=== PATIENT | male | born 1950 | race Caucasian/White ===

== ENCOUNTER → 2023-06-16 13:09 | Outpatient (REF) | payer MEDICARE, SELFPAY | LOC: HWRAD 13:09 | PROVIDERS: ATTENDING PHYSICIAN Physician Assistant | DX: R10.10 Upper abdominal pain, unspecified (principal); Z87.19 Personal history of other diseases of the digestive system | CPT/HCPCS: 76700 ==

== ENCOUNTER → 2023-09-15 06:37 | Day surgery (SDC) | payer MEDICARE, SELFPAY | LOC: GI 06:37 | PROVIDERS: ATTENDING PHYSICIAN Internal Medicine Gastroenterology | DX: Z12.11 Encounter for screening for malignant neoplasm of colon (principal); K64.8 Other hemorrhoids; D12.2 Benign neoplasm of ascending colon; D12.3 Benign neoplasm of transverse colon; D12.4 Benign neoplasm of descending colon; D12.0 Benign neoplasm of cecum; K62.1 Rectal polyp; K63.5 Polyp of colon; K31.7 Polyp of stomach and duodenum; K44.9 Diaphragmatic hernia without obstruction or gangrene; K22.70 Barrett's esophagus without dysplasia; K29.70 Gastritis, unspecified, without bleeding; Z86.010 Personal history of colon polyps | CPT/HCPCS: 45385; 45380; 43239; 88305; 88342 ==

== ENCOUNTER → 2023-12-05 13:25 | Outpatient (REF) | payer MEDICARE, SELFPAY | LOC: MRI 13:25 | PROVIDERS: ATTENDING PHYSICIAN Physician Assistant Surgical; FAMILY PHYSICIAN Physician Assistant | DX: M25.552 Pain in left hip (principal) | CPT/HCPCS: 73721 ==

== ENCOUNTER → 2024-02-17 09:29 | Outpatient (REF) | payer MEDICARE, SELFPAY ==
--- NOTE | 2024-01-26 13:33 | WATCHMAN ---
Watchman
Wathcman Procedure
Referred by:: Marcy Everett
Date of Referral:: 01/22/24
[id number] Score
Age in Years (65=0, 65-74=1, >/=75=2): 65-74
Sex (Female=+1): Male
Congestive Heart Failure History (Yes=+1): Yes
Hypertension History (Yes=+1): Yes
Stroke/TIA/Thromboembolism History (Yes=+2): No
Vascular Disease History (Yes=+1): No
Diabetes Mellitus (Yes=+1): No
Score: 3
Anticoagulation Recommendations: Recommend anticoagulation (as validated in nonvalvular fib)
HASBLED Score
Hypertenstion (uncontrolled >160mmHG systolic): No
Renal disease (dialysis, transplant, Cr >2.26mg/dL or >200umol/L): No
Liver disease (cirrhosis or bilirubin >2x normal w/ AST/ALT/AP >3x normal: No
Stroke history: No
Prior major bleeding or predisposition to bleeding: Yes
Labile INR(unsable/high INRs,time in therapeutic range <60%): No
Age >65: Yes
Medication usage predisposing to bleeding(ASA, NSAIDS): No
Alcohol use (>/= 8 drinks/week): No
Score: 2
Risk: Anticoagulation can be considered, however patient does have moderate risk for major bleeding (2/100 patient-years)
Electrocardiogram
Interpretation: abnormal
Heart Rate: 73
Rhythm: a-fib
QRS Pattern: left bundle branch block
Physician Visits
Dock Manager:: Marguerite
Date of Visit:: 01/22/24
Primary [employer]ilingual [employer] Psychologist:: Dr. Librado Everett
PCP:: Ana Yoon
Oral Anticoagulation
Post procedure anticoagulation plan:: Maintain Eliquis 5 mg twice daily for 3 months after watchman implantation until we can further assess adequacy of device implantation at the 3-month transesophageal echocardiogram.
Plan
Plan:: 01/22/2024: Consult for watchman received from Dr. Everett.
01/26/2024: Called and spoke to patient. Verified he will have BMP tomorrow at [facility] and he understands instructions for prednisone/benadryl prior to CT scan for his contrast allergy. Assisted in scheduling CT scan for 02/17/2024 at 0945. Provided
with instructions to not eat or drink 3 hours prior. Allowed for and answered questions. Confirmed he has my contact information.
== END ==
LOC: RAD 09:29
PROVIDERS: ATTENDING PHYSICIAN Internal Medicine Cardiovascular Disease; FAMILY PHYSICIAN Physician Assistant
DX: I48.21 Permanent atrial fibrillation (principal)
CPT/HCPCS: 75572; Q9967

== ENCOUNTER → 2025-02-08 12:32 | Outpatient (REF) | payer MEDICARE, SELFPAY ==
--- NOTE | 2025-02-08 13:46 | CARDSERVLU ---
Echocardiogram with Lumason completed after protocol screening completed. Allergies verified.
Patent IV site: __new start 20P RAC 1st attempt___
IV site flushed with 0.9% NaCl pre and post administration.
Diluted bolus method utilized to enhance visualization of ventricular hurst.
Total volume given: __3.5__ mL
site dcd at completion of test
Patient tolerated all procedures well without complications.
[2025-02-08 14:36] LABS: Hematocrit 41.1 % (39.0-52.0); Hemoglobin 13.1 g/dL (13.0-18.0); Mean Corp Hgb Conc. 31.9 g/dL (33.0-37.0); Mean Corpuscular Volume 85.6 fL (80.0-94.0); Nucleated Red Blood Cells % 0 % (-); Platelet Count 155 10^3/uL (130-400); Red Cell Dist. Width 15.2 % (11.5-14.5)
[2025-02-08 15:32] LABS: ALT (SGPT) 14 U/L (0-50); AST (SGOT) 25 U/L (17-59); Albumin 4.4 g/dl (3.5-5.0); Alkaline Phosphatase 53 U/L (38-126); Blood Urea Nitrogen 16 mg/dl (9-20); Calcium 9.9 mg/dl (8.4-10.2); Carbon Dioxide 28 mmol/L (22-30); Chloride 104 mmol/L (98-107); Glucose 87 mg/dl (70-99); Potassium 4.4 mmol/L (3.5-5.1); Sodium 139 mmol/L (135-145); Total Protein 7.5 g/dl (6.3-8.2); Uric Acid 3.2 mg/dl (3.5-8.5); eGFR > 60.00
== END ==
LOC: RCS 12:32
PROVIDERS: ATTENDING PHYSICIAN Internal Medicine Cardiovascular Disease; FAMILY PHYSICIAN Physician Assistant; OTHER PHYSICIAN Internal Medicine
DX: I48.21 Permanent atrial fibrillation (principal); M10.9 Gout, unspecified; M1A.00X0 Idiopathic chronic gout, unspecified site, without tophus (tophi)
CPT/HCPCS: 36415; 80053; 84550; 85025; 93306; Q9950